=== PATIENT | female | born 1940 | race Caucasian/White ===

== ENCOUNTER 2025-01-05 13:37 | Observation (INO) | payer MEDICARE, BC ==
[2025-01-05 14:01] LABS: BASOPHILS ABSOLUTE AUTO 0.04 K/uL (0.00-0.20); BASOPHILS PERCENT AUTO 0.7 % (0.0-2.0); EOSINOPHILS ABSOLUTE AUTO 0.14 K/uL (0.00-0.50); EOSINOPHILS PERCENT AUTO 2.4 % (0.0-5.0); IMMATURE GRAN ABSOLUTE AUTO 0.01 10^3/uL (0.00-0.04); IMMATURE GRAN PERCENT AUTO 0.2 % (0.0-0.4); LYMPHOCYTES ABSOLUTE AUTO 0.68 K/uL (0.50-3.50); LYMPHOCYTES PERCENT AUTO 11.6 % (10.0-50.0); MONOCYTES ABSOLUTE AUTO 0.62 K/uL (0.00-1.00); MONOCYTES PERCENT AUTO 10.6 % (2.0-14.0); NEUTROPHILS ABSOLUTE AUTO 4.35 K/uL (1.40-7.00); NEUTROPHILS PERCENT AUTO 74.5 % (45.0-80.0); PLATELET COUNT,PLT 224 K/uL (150-350); RED BLOOD CELL COUNT 3.98 M/uL (3.77-5.09); RED CELL DISTRIBUTION WIDTH 14.2 % (11.2-14.1); WHITE BLOOD CELL COUNT,WBC 5.8 K/uL (4.0-10.2)
[2025-01-05 14:38] LABS: ALANINE AMINOTRANSFERASE,ALT 27 U/L (12-78); ASPARTATE AMNIOTRANSFERASE,AST 39 U/L (15-37); BILIRUBIN TOTAL 0.8 mg/dL (0.2-1.0); BLOOD UREA NITROGEN,BUN 16 mg/dL (7-18); CARBON DIOXIDE,CO2 29.8 mmol/L (21.0-32.0); CHLORIDE,CL 102 mmol/L (98-107); CREATININE 1.23 mg/dL (0.51-1.17); ESTIMATED GFR 43 mL/min (>=60); GLUCOSE RANDOM 162 mg/dL (70-99); POTASSIUM,K 3.8 mmol/L (3.5-5.1); PRO B-TYPE NATRIUR PEPT,BNPPRO 2944 pg/mL (0-125); PROTEIN TOTAL,TP 7.4 g/dL (6.4-8.2); SODIUM,NA 137 mmol/L (136-145)
[2025-01-05] MEDS ORDERED: Nitroglycerin 0.4 MG Tab.SL SL PRN (15:40)
[2025-01-05] MEDS: Sodium Chloride 0.9% 10 ML Syringe FLUSH PRN (16:14)
[2025-01-05] MEDS: Diltiazem IR 60 MG Tab PO ONE (16:32)
[2025-01-05] MEDS: Potassium Chloride 20 MEQ Tab.ER PO ONE (16:35)
[2025-01-06] MEDS: Diltiazem 180 MG Cap.CD PO SCH (07:55)
[2025-01-06 08:00] LABS: BLOOD UREA NITROGEN,BUN 15.0 mg/dL (7-18); CARBON DIOXIDE,CO2 27.2 mmol/L (21.0-32.0); CHLORIDE,CL 106.0 mmol/L (98-107); CREATININE 0.93 mg/dL (0.51-1.17); EST CRCL DRUG DOSING (CG) 33.41 mL/min; GLUCOSE RANDOM 95.0 mg/dL (70-99); POTASSIUM,K 4.3 mmol/L (3.5-5.1); SODIUM,NA 140.0 mmol/L (136-145)
[2025-01-06] MEDS: Polyvinyl Alcohol 1.4% Ophth Soln 15 ML Bottle EYEBOTH SCH (08:01)
[2025-01-06 08:27] LABS: ESTIMATED GFR 60.0 mL/min (>=60)
[2025-01-06 08:32] LABS: BASOPHILS ABSOLUTE AUTO 0.02 K/uL (0.00-0.20); BASOPHILS PERCENT AUTO 0.4 % (0.0-2.0); EOSINOPHILS ABSOLUTE AUTO 0.16 K/uL (0.00-0.50); EOSINOPHILS PERCENT AUTO 3.0 % (0.0-5.0); IMMATURE GRAN ABSOLUTE AUTO 0.00 10^3/uL (0.00-0.04); IMMATURE GRAN PERCENT AUTO 0.0 % (0.0-0.4); LYMPHOCYTES ABSOLUTE AUTO 1.01 K/uL (0.50-3.50); LYMPHOCYTES PERCENT AUTO 18.9 % (10.0-50.0); MONOCYTES ABSOLUTE AUTO 0.75 K/uL (0.00-1.00); MONOCYTES PERCENT AUTO 14.1 % (2.0-14.0); NEUTROPHILS ABSOLUTE AUTO 3.39 K/uL (1.40-7.00); NEUTROPHILS PERCENT AUTO 63.6 % (45.0-80.0); PLATELET COUNT,PLT 234 K/uL (150-350); RED BLOOD CELL COUNT 3.99 M/uL (3.77-5.09); RED CELL DISTRIBUTION WIDTH 14.1 % (11.2-14.1); WHITE BLOOD CELL COUNT,WBC 5.3 K/uL (4.0-10.2)
[2025-01-06 09:51] VITALS: BP 109/73; PULSE 87
== END 2025-01-06 10:50 | disposition home or self-care (01) ==
LOC: LL.ED 13:37 → LL.MS 15:22
PROVIDERS: ADMIT Emergency Medicine; ATTEND Emergency Medicine
DX: I48.91 Unspecified atrial fibrillation (principal); I25.10 Atherosclerotic heart disease of native coronary artery without angina pectoris; E78.00 Pure hypercholesterolemia, unspecified; I10 Essential (primary) hypertension; Z88.8 Allergy status to other drugs, medicaments and biological substances; Z79.01 Long term (current) use of anticoagulants; Z79.899 Other long term (current) drug therapy
CPT/HCPCS: 36415; 71045; 80048; 80053; 83605; 83735; 83880; 84484; 85025; 85379; 93005; 93010; 96360; 99223; 99238; 99285; A9270-GY; G0378; J7040

== ENCOUNTER 2025-01-25 14:46 | Inpatient (IN) | payer MEDICARE, BC ==
[2025-01-25 15:01] LABS: BASOPHILS ABSOLUTE AUTO 0.05 K/uL (0.00-0.20); BASOPHILS PERCENT AUTO 0.8 % (0.0-2.0); EOSINOPHILS ABSOLUTE AUTO 0.19 K/uL (0.00-0.50); EOSINOPHILS PERCENT AUTO 3.1 % (0.0-5.0); IMMATURE GRAN ABSOLUTE AUTO 0.00 10^3/uL (0.00-0.04); IMMATURE GRAN PERCENT AUTO 0.0 % (0.0-0.4); LYMPHOCYTES ABSOLUTE AUTO 0.80 K/uL (0.50-3.50); LYMPHOCYTES PERCENT AUTO 13.0 % (10.0-50.0); MONOCYTES ABSOLUTE AUTO 0.79 K/uL (0.00-1.00); MONOCYTES PERCENT AUTO 12.9 % (2.0-14.0); NEUTROPHILS ABSOLUTE AUTO 4.31 K/uL (1.40-7.00); NEUTROPHILS PERCENT AUTO 70.2 % (45.0-80.0); PLATELET COUNT,PLT 249 K/uL (150-350); RED BLOOD CELL COUNT 4.21 M/uL (3.77-5.09); RED CELL DISTRIBUTION WIDTH 14.4 % (11.2-14.1); WHITE BLOOD CELL COUNT,WBC 6.1 K/uL (4.0-10.2)
[2025-01-25] MEDS: methylPREDNISolone Sodium Succinate 40 MG/1 ML SDV IVPUSH ONE (15:12)
[2025-01-25] MEDS: Sodium Chloride 0.9% 10 ML Syringe FLUSH PRN (15:12)
[2025-01-25] MEDS: Diltiazem IR 60 MG Tab PO ONE (15:20)
[2025-01-25 15:28] LABS: ALANINE AMINOTRANSFERASE,ALT 29.0 U/L (12-78); ASPARTATE AMNIOTRANSFERASE,AST 46.0 U/L (15-37); BILIRUBIN TOTAL 0.8 mg/dL (0.2-1.0); BLOOD UREA NITROGEN,BUN 20.0 mg/dL (7-18); CARBON DIOXIDE,CO2 29.8 mmol/L (21.0-32.0); CHLORIDE,CL 102.0 mmol/L (98-107); CREATININE 1.06 mg/dL (0.51-1.17); EST CRCL DRUG DOSING (CG) 31.97 mL/min; GLUCOSE RANDOM 108.0 mg/dL (70-99); INR 1.5 (0.9-1.1); POTASSIUM,K 4.1 mmol/L (3.5-5.1); PRO B-TYPE NATRIUR PEPT,BNPPRO 4206.0 pg/mL (0-125); PROTEIN TOTAL,TP 7.5 g/dL (6.4-8.2); SODIUM,NA 137.0 mmol/L (136-145)
[2025-01-25 15:31] LABS: ESTIMATED GFR 51.0 mL/min (>=60)
[2025-01-25] MEDS: Iopamidol 755 Mg/ML 100 ML Bottle IVPUSH STA (16:38)
[2025-01-25] MEDS ORDERED: Ondansetron 4 MG/2 ML SDV IVPUSH PRN (19:33)
[2025-01-25] MEDS ORDERED: Nitroglycerin 0.4 MG Tab.SL SL PRN (19:39)
[2025-01-25] MEDS: Furosemide 40 MG/4 ML VIAL IVPUSH SCH (20:06)
[2025-01-25] MEDS: methylPREDNISolone Sodium Succinate 40 MG/1 ML SDV IVPUSH SCH (20:30)
[2025-01-25] MEDS: Diltiazem 25 MG/5 ML SDV IVPUSH ONE (22:31)
[2025-01-26 07:59] LABS: BASOPHILS ABSOLUTE AUTO 0.00 K/uL (0.00-0.20); BASOPHILS PERCENT AUTO 0.0 % (0.0-2.0); EOSINOPHILS ABSOLUTE AUTO 0.00 K/uL (0.00-0.50); EOSINOPHILS PERCENT AUTO 0.0 % (0.0-5.0); IMMATURE GRAN ABSOLUTE AUTO 0.01 10^3/uL (0.00-0.04); IMMATURE GRAN PERCENT AUTO 0.2 % (0.0-0.4); LYMPHOCYTES ABSOLUTE AUTO 0.56 K/uL (0.50-3.50); LYMPHOCYTES PERCENT AUTO 14.0 % (10.0-50.0); MONOCYTES ABSOLUTE AUTO 0.15 K/uL (0.00-1.00); MONOCYTES PERCENT AUTO 3.7 % (2.0-14.0); NEUTROPHILS ABSOLUTE AUTO 3.29 K/uL (1.40-7.00); NEUTROPHILS PERCENT AUTO 82.1 % (45.0-80.0); PLATELET COUNT,PLT 237 K/uL (150-350); RED BLOOD CELL COUNT 4.18 M/uL (3.77-5.09); RED CELL DISTRIBUTION WIDTH 14.4 % (11.2-14.1); WHITE BLOOD CELL COUNT,WBC 4.0 K/uL (4.0-10.2)
[2025-01-26 08:42] LABS: BLOOD UREA NITROGEN,BUN 23.0 mg/dL (7-18); CARBON DIOXIDE,CO2 27.8 mmol/L (21.0-32.0); CHLORIDE,CL 100.0 mmol/L (98-107); CREATININE 1.27 mg/dL (0.51-1.17); EST CRCL DRUG DOSING (CG) 26.69 mL/min; GLUCOSE RANDOM 190.0 mg/dL (70-99); POTASSIUM,K 3.7 mmol/L (3.5-5.1); SODIUM,NA 136.0 mmol/L (136-145); TSH ULTRASENSITIVE 2.624 mIU/mL (0.358-3.740)
[2025-01-26 08:49] LABS: ESTIMATED GFR 41.0 mL/min (>=60)
[2025-01-26] MEDS ORDERED: Diltiazem IR 60 MG Tab PO ONE (11:59)
[2025-01-27] MEDS: methylPREDNISolone Sodium Succinate 40 MG/1 ML SDV IVPUSH SCH (07:54)
[2025-01-27] MEDS: Polyvinyl Alcohol 1.4% Ophth Soln 15 ML Bottle EYEBOTH SCH (09:43)
[2025-01-28 07:45] LABS: BASOPHILS ABSOLUTE AUTO 0.00 K/uL (0.00-0.20); BASOPHILS PERCENT AUTO 0.0 % (0.0-2.0); EOSINOPHILS ABSOLUTE AUTO 0.00 K/uL (0.00-0.50); EOSINOPHILS PERCENT AUTO 0.0 % (0.0-5.0); IMMATURE GRAN ABSOLUTE AUTO 0.02 10^3/uL (0.00-0.04); IMMATURE GRAN PERCENT AUTO 0.2 % (0.0-0.4); LYMPHOCYTES ABSOLUTE AUTO 0.77 K/uL (0.50-3.50); LYMPHOCYTES PERCENT AUTO 7.1 % (10.0-50.0); MONOCYTES ABSOLUTE AUTO 1.21 K/uL (0.00-1.00); MONOCYTES PERCENT AUTO 11.2 % (2.0-14.0); NEUTROPHILS ABSOLUTE AUTO 8.83 K/uL (1.40-7.00); NEUTROPHILS PERCENT AUTO 81.5 % (45.0-80.0); PLATELET COUNT,PLT 235 K/uL (150-350); RED BLOOD CELL COUNT 4.15 M/uL (3.77-5.09); RED CELL DISTRIBUTION WIDTH 14.4 % (11.2-14.1); WHITE BLOOD CELL COUNT,WBC 10.8 K/uL (4.0-10.2)
[2025-01-28 08:17] LABS: BLOOD UREA NITROGEN,BUN 35.0 mg/dL (7-18); CARBON DIOXIDE,CO2 30.6 mmol/L (21.0-32.0); CHLORIDE,CL 97.0 mmol/L (98-107); CREATININE 1.14 mg/dL (0.51-1.17); EST CRCL DRUG DOSING (CG) 29.12 mL/min; GLUCOSE RANDOM 108.0 mg/dL (70-99); POTASSIUM,K 4.2 mmol/L (3.5-5.1); SODIUM,NA 134.0 mmol/L (136-145)
[2025-01-28 08:18] LABS: ESTIMATED GFR 47.0 mL/min (>=60)
[2025-01-28 08:18] LABS: PRO B-TYPE NATRIUR PEPT,BNPPRO 5170 pg/mL (0-125)
[2025-01-28 09:19] VITALS: BP 136/76; PULSE 77
[2025-01-30 19:47] LABS: A-1-A PHENOTYPE M1S; ALPHA-1-ANTITRYPSN 183 mg/dL (90-200)
== END 2025-01-28 11:12 | DRG 309 ==
LOC: LL.ED 14:46 → LL.MS 18:45 → OBSVTOIN 01-26 14:10
PROVIDERS: ADMIT Emergency Medicine; ATTEND Emergency Medicine
DX: I49.5 Sick sinus syndrome (principal); J44.1 Chronic obstructive pulmonary disease with (acute) exacerbation; I48.91 Unspecified atrial fibrillation; I11.0 Hypertensive heart disease with heart failure; I50.9 Heart failure, unspecified; Z66 Do not resuscitate; H91.90 Unspecified hearing loss, unspecified ear; H54.7 Unspecified visual loss; I25.10 Atherosclerotic heart disease of native coronary artery without angina pectoris; E78.00 Pure hypercholesterolemia, unspecified; I73.9 Peripheral vascular disease, unspecified; J44.9 Chronic obstructive pulmonary disease, unspecified; K59.09 Other constipation; M19.90 Unspecified osteoarthritis, unspecified site; M54.9 Dorsalgia, unspecified; M54.2 Cervicalgia; M81.0 Age-related osteoporosis without current pathological fracture; G43.909 Migraine, unspecified, not intractable, without status migrainosus; F41.9 Anxiety disorder, unspecified; F32.A Depression, unspecified; E03.9 Hypothyroidism, unspecified; Z98.49 Cataract extraction status, unspecified eye; Z98.890 Other specified postprocedural states; I25.2 Old myocardial infarction; Z95.0 Presence of cardiac pacemaker; Z79.899 Other long term (current) drug therapy; Z79.01 Long term (current) use of anticoagulants; Z88.8 Allergy status to other drugs, medicaments and biological substances
CPT/HCPCS: 36415; 71045; 71046; 71275; 80048; 80053; 82103; 82104; 83605; 83735; 83880; 84443; 84484; 85025; 85379; 85610; 93005; 94640; 96374; 96375; 96376; 99285-25; A9270-GY; G0378; J1160; J1938; J2919; J3490; Q9967